=== PATIENT | female | born 2000 | race Caucasian/White ===

== ENCOUNTER 2024-01-31 18:50 | Emergency (ER) | payer OTHER, SELFPAY ==
[2024-01-31 18:59] VITALS: BMI 33.8
--- NOTE | 2024-01-31 19:39 | ED.GENMED ---
History of Present Illness
<JOYCE Tobias - Last Filed: 01/31/24 21:36>
General
Chief Complaint: Fall
Source: patient
Time Seen by Provider: 01/31/24 19:38
Nursing documentation reviewed up to this point in time: agreed with
History of Present Illness
History of Present Illness:
Patient is a 23 year old female with a PMH of dysautonomia and von Willebrand's disease presenting to the ED after a fall x 5 hours. She states this morning she woke up feeling dizzy and nauseas. She vomited once this morning but denies any blood in
vomit. A few hours later around 300pm she states she just remembers being on the floor at the bottom of her stairs. Her brother found her on the ground. Shes coming with a presentation of neck pain. It is a sharp pain in the neck that has a tingling
sensation down the back and legs and it is rated a 5/10. It is constant and worse with movement. Patient did not take any NSAIDs because of her bleeding disorder. She admits to a mild left sided headache and sob. Patient says she has episodes of sob
ever since she was intubated in November. She denies chest pain abdominal pain changes in bm.
Patient has a PMH of dysautonomia and von Willebrand's disease which is controlled on medication. She also has a history of anxiety depression PTSD and bipolar disorder. In the past she has had hypoglycemic episodes that cause her to feel dizzy.
Review of Systems
<JOYCE Tobias - Last Filed: 01/31/24 21:36>
Review of Systems
Constitutional: Reports no symptoms
Respiratory: Reports trouble breathing
Cardiac: Reports no symptoms
ABD/GI: Reports nausea and vomiting
: Reports no symptoms
Musculoskeletal: Reports neck pain
Neurological: Reports dizzy
Phy Exam
<JOYCE Tobias - Last Filed: 01/31/24 21:36>
General Physical Exam
General Presentation: mild distress
General age: appears stated age
General Habitus: normal
General Mental: alert
Cardiovascular Exam
Cardiovascular Exam: regular rate/rhythm, no edema, no gallop, no JVD and no murmur
Pulmonary Exam
Pulmonary Exam: lungs clear, no respiratory distress, no rales, chest non tender, no crackles, no rhonchi, no stridor, no wheezing and no cough
Sensory
Sensory Exam: intact (sensation intact to light touch in upper and lower extremities b/l)
Musculoskeletal Exam
Musculoskeletal Exam: full ROM, neck pain (exacerbated with any movement ) and no edema
Course
Bakarilt;JOYCE Tobias - Last Filed: 01/31/24 21:36>
Orders/Labs/Results
Orders:
Orders
01/31/24 18:58
ECG [Electrocardiogram (*1)] Urgent
Reason for Study: Vertigo / Dizzy
Cardiology Consult: Unknown
EKG- Treatment ONCE
01/31/24 19:13
CT Cervical Spine W/o Iv Contr Urgent
Reason For Exam: fall posterior neck pain
CT Head W/o Iv Contrast Urgent
Comment:
Reason For Exam: fall headache
01/31/24 21:42
Complete Blood Count/With Diff Urgent
Comprehensive Metabolic Panel Urgent
HCG, Serum Qualitative Screen Urgent
01/31/24 21:43
Test Result ONCE
01/31/24 21:45
Orthostatic Vital Signs As Directed
Orthostatic VS Frequency: Now
Abnormal Lab Results
01/31/24
19:49
POC Glucose 122 H mg/dl
(70-99)
Vital Signs
Initial and Last Documented VS:
Initial Vital Signs
Temp
97.9 F
01/31/24 19:00
Last Documented Vital Signs
Temp Pulse Resp BP Pulse Ox
97.9 F 109 11 113/71 99
01/31/24 19:00 01/31/24 21:45 01/31/24 21:45 01/31/24 21:43 01/31/24 21:45
<Anibal Perla DO - Last Filed: 01/31/24 23:07>
Orders/Labs/Results
Orders:
Orders
01/31/24 18:58
ECG [Electrocardiogram (*1)] Urgent
Reason for Study: Vertigo / Dizzy
Cardiology Consult: Unknown
EKG- Treatment ONCE
01/31/24 19:13
CT Cervical Spine W/o Iv Contr Urgent
Reason For Exam: fall posterior neck pain
CT Head W/o Iv Contrast Urgent
Comment:
Reason For Exam: fall headache
01/31/24 21:42
Complete Blood Count/With Diff Urgent
Comprehensive Metabolic Panel Urgent
HCG, Serum Qualitative Screen Urgent
01/31/24 21:43
Test Result ONCE
01/31/24 21:45
Orthostatic Vital Signs As Directed
Orthostatic VS Frequency: Now
Abnormal Lab Results
01/31/24
19:49
POC Glucose 122 H mg/dl
(70-99)
Vital Signs
Initial and Last Documented VS:
Initial Vital Signs
Temp
97.9 F
01/31/24 19:00
Last Documented Vital Signs
Temp Pulse Resp BP Pulse Ox
97.9 F 109 11 113/71 99
01/31/24 19:00 01/31/24 21:45 01/31/24 21:45 01/31/24 21:43 01/31/24 21:45
<JOYCE Tobias - Last Filed: 01/31/24 21:36>
MDM/Problems Addressed
Differential Diagnosis Includes:
impinged nerve, dysautonomia exacerbation
MDM/Problems Addressed:
order ct of head and neck, monitor
<JOYCE Tobias - Last Filed: 01/31/24 21:36>
*Critical Care Note
Total Time (30-74mins, 75-104mins- exclusive of procedures): Not Applicable
<Anibal Perla DO - Last Filed: 01/31/24 23:07>
Update Note
Update Note:
01/31/2024 2305 PM: Patient is not orthostatic. She states that she is now at her baseline. She wishes to be discharged home. Both mom and dad are in agreement. Patient to be discharged home. It is plausible that patient did not fall down the
steps since she does not have any signs or symptoms of trauma. Patient to be monitored at home by parents who are medical technician. Discussed return to ER instructions at length with the patient. I feel that she is good understanding of
discharge instructions.
ED Attending Note
<JOYCE Tobias - Last Filed: 01/31/24 21:36>
-
Portions of this chart may have been created with voice recognition software.� Occasional wrong word or��sound alike� substitutions may have occurred due to the inherent limitations of voice recognition software.
<Anibal Perla DO - Last Filed: 01/31/24 23:07>
ED Attending Note
Patient seen and examined by attending physician: Yes
I performed the substantive portion of visit, reviewed & personally made and approve the management plan that is documented in note by myself or MAURI.: Yes
ED Attending Note:
Pleasant 23-year-old female brought in by EMS after possible fall. She was found by her siblings at the bottom of her steps. Upon arrival, EMS found her somnolent. They were able to awaken her with a sternal rub according to their report. They
transported her BLS to the emergency department. Upon arrival she was awake alert and oriented. She was tearful. She did report some neck tenderness. She had [id number] in her legs. She does have von Willebrand's disease. Patient is
being worked up for POTS, but does not have a formal diagnosis. Mom and dad are prehospital RN and EMT respectively. Patient was seen in conjunction with the PA student. I have reviewed and agree with the history and treatment plan presented. On
my independent physical exam, patient is awake, alert, and oriented x3, minimal acute distress. She does have some nonmidline back tenderness on the left. She has full range of motion in the neck without issue. Heart is regular rate and rhythm.
Lungs are clear to auscultation. Moves all 4 extremities without issue. Patient wishes to be discharged.
We will perform orthostatic vital signs. She is eating and drinking without issue. We will ambulate her. Parents are at the bedside. They are medical providers and wish to take her home.
Discharge Plan
Departure
Patient Disposition: Home (Routine Discharge)
Date of Disposition: 01/31/24
Time of Disposition: 23:06
Patient with high blood pressure during this ER visit?: No
Condition: Good
Discharge Problem:
near syncopal episode
Instructions: Preventing falls in adults, Near Fainting (DC)
Prescriptions:
No Action
sulfamethoxazole-trimethoprim 1 TABLET tablet
1 tab PO BID
Referrals:
Jamaal Brooks MD [Family Provider] -
Activity Restrictions/Additional Instructions:
It was a pleasure meeting you and taking part in your care. We hope for your continued healing and wellness.
Please read discharge instructions in their entirety. However, they are for general education and may not describe your exact diagnosis at discharge. Information on your ER visit and medical conditions were discussed with you along with appropriate
follow up information...
If indicated, please take your medications as instructed and indicated on discharge paperwork.
Please schedule a follow up appointment as directed. Call to schedule an appointment
Please return to the emergency department with ANY change in, persisting, or worsening of symptoms. If any of your symptoms do not improve, or persist, or become more severe within 6-12 hours, please return to the emergency department for further
care.
Please return to the emergency department if you develop a headache, neck pain/stiffness, fever greater than 100.4F, chest pain, shortness of breath, persistent nausea, vomiting, slurred speech, difficulty walking, numbness/tingling, weakness, signs
of infection or any other symptoms that are worrisome to you.
If you have any questions or concerns please do not hesitate to call the Hospital at or E-mail me directly at [email or web address]
Interventions
Interventions:
*Risk Screen - Suicide Last Done: 01/31/24 19:20
*Neglect/Abuse Screening Last Done: 01/31/24 19:20
ED- Fall Risk Assessment Last Done: 01/31/24 19:20
*ED COVID-19 Vaccine History Last Done: 01/31/24 19:20
ED-Skin Assessment Last Done: 01/31/24 19:29
ED- Neurological Assessment Last Done: 01/31/24 19:20
ED-Musculoskeletal Assessment Last Done: 01/31/24 19:29
Discharge Date and Time
Print Language: JAPANESE
[2024-01-31 19:52] LABS: Glucose - Point of Care 122 mg/dl (70-99)
[2024-01-31 20:00] VITALS: BP 104/77
[2024-01-31 21:43] VITALS: BP 113/71
[2024-01-31 22:15] VITALS: BP 105/72; BP 118/77; BP 122/86; PULSE 105; PULSE 108; PULSE 99
[2024-01-31 23:22] VITALS: BP 118/77
== END 2024-01-31 23:23 | disposition home or self-care (01) ==
LOC: EMR 18:50
PROVIDERS: EMERGENCY PHYSICIAN Student in an Organized Health Care Education/Training Program; FAMILY PHYSICIAN Family Medicine
DX: R55 Syncope and collapse (principal); M54.2 Cervicalgia; R42 Dizziness and giddiness; R11.2 Nausea with vomiting, unspecified; R06.02 Shortness of breath; R51.9 Headache, unspecified; R40.0 Somnolence; R20.2 Paresthesia of skin; W19.XXXA Unspecified fall, initial encounter; D68.00 Von Willebrand disease, unspecified; F31.9 Bipolar disorder, unspecified; F43.10 Post-traumatic stress disorder, unspecified; F41.9 Anxiety disorder, unspecified; F32.A Depression, unspecified; G90.1 Familial dysautonomia [Riley-Day]; Z88.6 Allergy status to analgesic agent; Z88.8 Allergy status to other drugs, medicaments and biological substances; Z91.018 Allergy to other foods
CPT/HCPCS: 99284; 70450; 72125; 82962; 93005